=== PATIENT | male | born 1975 | race Two or more races ===

== ENCOUNTER 2019-04-23 06:38 | Day surgery (SDC) | payer BC ==
[~2019-04-23] VITALS: Ht 175.3 cm; Wt 79.4 kg
[2019-04-23] VITALS (9 sets, daily range): BP systolic 119–144; BP diastolic 76–95
--- NOTE | 2019-04-23 07:45 | Anethesia Preoperative Eval ---
Anesthesia Pre-op PMH/ROS General Date of Evaluation: Apr 23, 2019 Anesthesiologist: López ASA Score: ASA 2 Mallampati Score Class I : Soft palate, uvula, fauces, pillars visible Class II: Soft palate, uvula, fauces visible Class III: Soft palate, base of uvula visible Class IV: Only hard plate visible Mallampati Classification: Class II Surgeon: Flash Diagnosis: screening Surgical Procedure: colonoscopy Anesthesia History: none Family History: no anesthesia problems Allergies: Coded Allergies: No Known Allergies (Unverified , 04/23/19) Medications: see eMAR Patient NPO?: Yes NPO Date: Apr 23, 2019 NPO Time: 00:00 Past Medical History Cardiovascular: Denies: HTN, CAD, [place], valve dz, arrhythmia, other Pulmonary: Denies: asthma, COPD, NEIDA, other Gastrointestinal/Genitourinary: Denies: GERD, CRI, ESRD, other Neurologic/Psychiatric: Denies: dementia, CVA, depression/anxiety, TIA, other Endocrine: Denies: DM, hypothyroidism, steroids, other HEENT: Denies: cataract (L), cataract (R), glaucoma, [place]AY (L), [place]AY (R), other Hematology/Immune: Denies: anemia, DVT, bleeding disorder, other Musculoskeletal/Integumentary: Denies: OA, RA, DJD, DDD, edema, other Anesthesia Pre-op Phys. Exam Physician Exam Last Vital Signs Date Time Temp Pulse Resp B/P (MAP) Pulse Ox O2 Delivery O2 Flow Rate FiO2 04/23/19 07:11 Room Air 04/23/19 07:01 98.1 65 131/84 Constitutional: NAD Cardiovascular: RRR Respiratory: CTA Airway Exam Mallampati Score: Class II MO: full ROM: full Anesthesia Pre-op A/P Labs se3e chart Studies Pre-op Studies: EKG - sr Risk Assessment & Plan Assessment: ASA II Plan: MAC Status Change Before Surgery: No Pre-Antibiotics Drug: N/A Kenna Trejo MD Apr 23, 2019 07:45
[2019-04-23] MEDS ORDERED: LR 1000ml 1,000 ML IVLG SCH (07:47)
[2019-04-23] MEDS ORDERED: DiphenhydrAMINE 50mg/ml Inj IVP PRN (08:00)
[2019-04-23] MEDS ORDERED: Propofol 200mg/20ml IV ONE (08:00)
[2019-04-23] MEDS ORDERED: LR 1000ml ONE (08:00)
[2019-04-23] MEDS ORDERED: Lidocaine 1% MPF 10mg/ml 5ml ONE (08:00)
--- NOTE | 2019-04-23 08:08 | Pre-Procedure Note/Attestation ---
Pre-Procedure Note/Attestation Complete Prior to Procedure Planned Procedure: not applicable Procedure Narrative: colon Indications for Procedure Pre-Operative Diagnosis: screening Attestation I attest that I discussed the nature of the procedure; its benefits; risks and complications; and alternatives (and the risks and benefits of such alternatives ), prior to the procedure, with the patient (or the patient's legal life assurance representative). I attest that, if there was a reasonable possibility of needing a blood transfusion, the patient (or the patient's legal life assurance representative) was given the [facility] standardized written summary, pursuant to the Liam Bruna Blood Safety Act ([place] Health and Safety Code # 1645, as amended). I attest that I re-evaluated the patient just prior to the surgery and that there has been no change in the patient's H&P, except as documented below: Abdiel Vidales MD Apr 23, 2019 08:08
--- NOTE | 2019-04-23 08:08 | Short Stay Surgery H&P ---
History of Present Illness History of Present Illness Chief Complaint See attached H&P HPI Tereso Maza Scott is a 43 year old male who was admitted on for Screening Patient History Allergies: Coded Allergies: No Known Allergies (Unverified , 04/23/19) Physical Exam Vital Signs Last Vital Signs Date Time Temp Pulse Resp B/P (MAP) Pulse Ox O2 Delivery O2 Flow Rate FiO2 04/23/19 07:11 Room Air 04/23/19 07:01 98.1 65 131/84 Plan Attestation Are the patient's medical conditions optimized for surgery? Abdiel Vidales MD Apr 23, 2019 08:08
--- NOTE | 2019-04-23 08:56 | Immediate Post-Op Evaluation ---
Immediate Post-Op Evalulation Immediate Post-Op Evalulation Procedure: colonoscopy Date of Evaluation: Apr 23, 2019 Time of Evaluation: 08:58 IV Fluids: 500 Blood Products: 0 Estimated Blood Loss: 0 Urinary Output: 0 Blood Pressure Systolic: 129 Blood Pressure Diastolic: 91 Pulse Rate: 75 Respiratory Rate: 16 O2 Sat by Pulse Oximetry: 100 Temperature (Fahrenheit): 97.3 Pain Score (1-10): 0 Nausea: No Vomiting: No Complications 0 Patient Status: awake, reacts, patent, none Hydration Status: adequate Drug: N/A Kenna Trejo MD Apr 23, 2019 08:56
--- NOTE | 2019-04-23 08:57 | 48 Hour Post Anesthesia Eval ---
Post Anesthesia Evaluation Procedure: colonoscopy Date of Evaluation: Apr 23, 2019 Airway: patent Nausea: No Vomiting: No Pain Intensity: 0 Hydration Status: adequate Cardiopulmonary Status: at baseline Mental Status/LOC: patient returned to baseline Post-Anesthesia Complications: 0 Follow-up care needed: ready to discharge Kenna Trejo MD Apr 23, 2019 08:57
--- NOTE | 2019-04-23 15:15 | Procedure Note ---
DATE OF PROCEDURE: 04/23/2019 PROCEDURE: Screening colonoscopy. SURGEON: Abdiel Vidales M.D. ANESTHESIA: Please see the separate anesthesiologist notes for details. PRE-ENDOSCOPIC DIAGNOSIS: Screening. POST-ENDOSCOPIC DIAGNOSES: 1. Two aphthous ulcer seen in the distal terminal ileum, status post biopsy. 2. Status post random biopsies of the remaining terminal ileum, right colon, and left colon. DESCRIPTION OF PROCEDURE: The procedure its risks, indications, alternatives, and possible complications including but not limited to bleeding, infection, perforation, , and anesthesia complications were explained to the patient and informed consent was obtained. The patient was then sedated in the left lateral decubitus position and a rectal exam was done, which was unremarkable. The colonoscope was then introduced in the rectum and advanced to the terminal ileum without difficulty. In the distal terminal ileum, there were two aphthous ulcers seen, one was approximately 3 mm and discrete. The second was moreover a small erosion. These were biopsied and sent to pathology for review. The terminal ileum was further intubated up to about 20 cm and no other lesions were identified. Random biopsies of the remaining terminal ileum were sent to pathology for review. Random biopsies of the right and left colon were also sent to pathology for review. There were no polyps or diverticulosis or other abnormalities seen. Retroflexed view of the rectum was unremarkable. The colonoscope was removed. The patient was sent to recovery in good condition. COMPLICATIONS: None. ASSESSMENT: This examination was notable for an incidental finding of two aphthous ulcers in the terminal ileum of unclear significance. Biopsies will be evaluated and findings will be further discussed with the patient and followup. RECOMMENDATIONS: 1. Resume oral diet. 2. Follow up biopsy results. 3. Outpatient followup. Abdiel Vidales M.D. DR: Pascual JOB#: [id number] CC:
== END 2019-04-23 10:10 | disposition home or self-care (01) ==
LOC: GAS 06:38
DX: Z12.11 Encounter for screening for malignant neoplasm of colon (principal); K63.3 Ulcer of intestine; K52.9 Noninfective gastroenteritis and colitis, unspecified
CPT/HCPCS: 45380; J2704; J7120; 94003; 94150